=== PATIENT | male | born 1990 | race Caucasian/White ===

== ENCOUNTER 2019-04-26 16:27 | Emergency (ER) | payer OTHER ==
[~2019-04-26] VITALS: Ht 177.8 cm; Wt 86.2 kg
[2019-04-26] MEDS ORDERED: Norco 5-325 Ta1 EACH PO (17:08)
== END 2019-04-26 17:17 | disposition home or self-care (01) ==
LOC: ER 16:27
DX: S62.501A Fracture of unspecified phalanx of right thumb, initial encounter for closed fracture (principal); M25.531 Pain in right wrist; W01.198A Fall on same level from slipping, tripping and stumbling with subsequent striking against other object, initial encounter
CPT/HCPCS: 29125; 73130; 99283-25

== ENCOUNTER 2022-01-21 19:09 | Emergency (ER) | payer OTHER ==
[~2022-01-21] VITALS: Ht 177.8 cm; Wt 77.1 kg
[~2022-01-21 19:09] MED LIST: Norco 5-325 Ta1 EACH PO
[2022-01-22] MEDS ORDERED: OXYM.05NI (00:36)
[2022-01-22] MEDS ORDERED: IBU600 MG PO (00:36)
== END 2022-01-22 00:58 | disposition home or self-care (01) ==
LOC: ER 19:09
DX: S09.90XA Unspecified injury of head, initial encounter (principal); S01.21XA Laceration without foreign body of nose, initial encounter; S00.83XA Contusion of other part of head, initial encounter; S00.511A Abrasion of lip, initial encounter; R04.0 Epistaxis; W22.042A Striking against wall of swimming pool causing other injury, initial encounter; Y93.11 Activity, swimming; Y92.34 Swimming pool (public) as the place of occurrence of the external cause
CPT/HCPCS: 70160; 90714; A9270

== ENCOUNTER 2023-11-06 18:28 | Emergency (ER) | payer OTHER ==
[~2023-11-06] VITALS: Ht 175.3 cm; Wt 86.2 kg
[~2023-11-06 18:28] MED LIST changes: +IBU600 MG PO; +OXYM.05NI
[2023-11-06 20:44] VITALS: BP 128/76
[2023-11-06] MEDS ORDERED: RX Prepack 6 Tabs Oxycodone 5mg UD ONE (21:05)
== END 2023-11-06 21:19 | disposition home or self-care (01) ==
LOC: ER 18:28
DX: S09.90XA Unspecified injury of head, initial encounter (principal); S46.911A Strain of unspecified muscle, fascia and tendon at shoulder and upper arm level, right arm, initial encounter; S80.12XA Contusion of left lower leg, initial encounter; S80.11XA Contusion of right lower leg, initial encounter; S80.812A Abrasion, left lower leg, initial encounter; S80.811A Abrasion, right lower leg, initial encounter; W10.9XXA Fall (on) (from) unspecified stairs and steps, initial encounter
CPT/HCPCS: 73030; 73590; 99284-25; A9270

== ENCOUNTER 2024-04-12 22:08 | Emergency (ER) | payer OTHER ==
[~2024-04-12] VITALS: Ht 175.3 cm; Wt 81.7 kg
[2024-04-12 22:16] VITALS: BP 134/90
[2024-04-12] MEDS ORDERED: IBU600 MG PO (22:37)
== END 2024-04-12 22:50 | disposition home or self-care (01) ==
LOC: ER 22:08
DX: S63.91XA Sprain of unspecified part of right wrist and hand, initial encounter (principal); W01.0XXA Fall on same level from slipping, tripping and stumbling without subsequent striking against object, initial encounter; Z91.040 Latex allergy status
CPT/HCPCS: 29125; 73130; 99283-25